=== PATIENT | female | born 1960 | race Two or more races ===

== ENCOUNTER 2024-03-10 10:22 | Outpatient (AMB) | payer OTHER, SELFPAY ==
--- NOTE | 2024-03-10 10:35 | MHC.OFFVIS ---
Intake Visit Reasons: Left knee pain Intake Note: Cheryl is a 63 year old female who presents with complaints of mild intermittent discomfort in her left knee. She describes her discomfort as achy in nature. She denies any locking or giving way. She has been using topical diclofenac gel which gives her fairly good relief. She also wears a knee brace. She continues to walk as much as possible for exercise. Allergies No Known Allergies Allergy (Verified 03/10/24 10:41) Medication List - Last Reconciled 03/10/24 by Kaleb Eastman MD glipizide 5 mg PO DAILY [facility] Social History (Updated 03/10/24 @ 10:43 by Iliana Torres) Alcohol intake: never Patient Tobacco Use Status: Never used Tobacco Current occupational status: employed Current occupation: House Keeping Physical Exam Const Other: Well-nourished well-developed very friendly female awake alert and oriented x3 in no acute distress Extrem Other: Bilateral lower extremity examination shows good capillary refill, no skin lesions noted, normal sensation light touch Left knee examination shows a minimal effusion, mild crepitus with range of motion, negative Thomas's test, no instability Results Reviewed Results Reviewed: X-rays of the patient's left knee show mild diffuse joint space narrowing, no acute bony abnormalities Assessment & Plan Assessment & Plan (1) Left knee pain: Code(s): M25.562 - Pain in left knee Category: Medical Plan Ms. Way presents with intermittent left knee discomfort due to early degenerative joint disease. I had a lengthy discussion with the patient regarding the treatment options. At this point the patient's symptoms are tolerable to her. We will hold off on a cortisone injection. I did refill her prescription for diclofenac topical gel. She will continue with her home exercise program. She will follow up with me on an as-needed basis should her symptoms worsen in any way. Feel free to call me at any time should questions regarding her orthopedic management arise. Thank you very much for asking me to see this very friendly patient. I spent 22 minutes in reviewing the patient's records and imaging studies, seeing the patient and documenting in the medical record. Orders: Orders XR knee LT 3V Today M25.562 - Pain in left knee Medications: New diclofenac sodium 1% (Aleve (diclofenac)) apply to painful area 2 times per day as needed 2 grams topical QID 100 grams 2RF Coding Level of Care Code New Pt Level 3 (09016) Complex EM visit Add On G2211 Diagnoses Left knee pain M25.562
== END 2024-03-10 10:56 | disposition home or self-care (01) ==
PROVIDERS: PCP Physician Assistant; Visit Provider Orthopaedic Surgery
DX: M25.562 Pain in left knee (principal)
CPT/HCPCS: 99203

== ENCOUNTER 2024-03-10 14:20 | Outpatient (REF) | payer OTHER, SELFPAY ==
--- NOTE | ~2024-03-10 | XR_ITS ---
EXAMINATION: XR KNEE, LEFT CLINICAL INFORMATION: Pain in left knee COMPARISON: None available. TECHNIQUE: Four views of the left knee. FINDINGS: Mild osteoarthritis of patellofemoral compartment and medial compartment. Lateral compartment normal. No effusion XR/XR knee LT 3V IMPRESSION: Mild osteoarthritis of the left knee. Electronically signed by: Italo Stafford MD 03/16/2024 11:51 AM EDT
== END 2024-03-10 14:21 | disposition home or self-care (01) ==
LOC: HO.HOSX 14:20
PROVIDERS: Visit Provider Orthopaedic Surgery
DX: M25.562 Pain in left knee (principal)
CPT/HCPCS: 73562

== ENCOUNTER 2024-08-11 10:09 | Outpatient (AMB) | payer OTHER, SELFPAY ==
--- NOTE | 2024-08-11 10:18 | MHC.OFFVIS ---
Vital Signs 08/11/24 10:23 Height 5 ft 3 in Weight 176 lb BMI 31.2 Intake Visit Reasons: Left knee pain and giving way Intake Note: Cheryl is a 64 year old female who presents with complaints of progressively worsening left knee pain and giving way. The patient describes her pain as sharp in nature. Most of the pain is along the medial aspect of her left knee. Her symptoms have gotten worse over the last year in spite of continued non operative treatments. She has failed the last 6 weeks of conservative treatment which have included a home physical therapy program, topical diclofenac gel, Tylenol and anti-inflammatory medicines. She states her left knee will give out several times per day. Allergies No Known Allergies Allergy (Verified 08/11/24 10:22) Medication List - Last Reconciled 08/11/24 by Kaleb Eastman MD diclofenac sodium 1% (Aleve (diclofenac)) 2 grams topical QID glipizide 5 mg PO DAILY PFSH Social History (Updated 03/10/24 @ 10:43 by Iliana Torres) Alcohol intake: never Patient Tobacco Use Status: Never used Tobacco Current occupational status: employed Current occupation: House Keeping Physical Exam Vital Signs: BMI result Body Mass Index 31.2 Const Other: Well-nourished well-developed very friendly female awake alert and oriented x3 in no acute distress Extrem Other: Bilateral lower extremity examination shows good capillary refill, no skin lesions noted, normal sensation light touch Left knee examination shows a minimal effusion, minimal crepitus with range of motion, tenderness along her medial joint line, positive Thomas's test, no instability Results Reviewed Results Reviewed: Standing full weight-bearing x-rays of the patient's left knee show mild diffuse joint space narrowing, no acute bony abnormalities Assessment & Plan Assessment & Plan (1) Tear of medial meniscus of left knee: Code(s): S83.242A - Other tear of medial meniscus, current injury, left knee, initial encounter Category: Medical Plan Ms. Way presents with progressively worsening left knee pain and mechanical symptoms most likely due to a medial meniscus tear. Thus, I will send the patient for an MRI of her left knee for further evaluation. I will see her back once the MRI is completed to discuss the findings and treatment options. Feel free to call me at any time should questions regarding her orthopedic management arise. I spent 20 minutes in reviewing the patient's records and imaging studies, seeing the patient and documenting in the medical record. Orders: Orders MR knee LT wo con 08/11/24 S83.242A - Other tear of medial meniscus, current injury, left knee, initial encounter Medications: Changed From diclofenac sodium 1% (Aleve (diclofenac)) apply to painful area 2 times per day as needed 2 grams topical QID 100 grams 2RF To diclofenac sodium 1% apply to painful area 2 times per day as needed 2 grams topical QID 100 grams 2RF Coding Level of Care Code Est Pt Level 3 (80882) Complex EM visit Add On G2211 Diagnoses Tear of medial meniscus of left knee S83.242A
[2024-08-11 10:23] VITALS: BMI 31.2
--- OUTSIDE RECORDS SUMMARY | 2024-08-11 12:38 | XMS_ITS | Encounter Summary ---
Author Organization [facility] Address [address] [place] [address] Care Team Providers Care Battery Checker Name Role Phone Rj Martinez PA-C Primary Care Provider + [phone] Reason for Referral * Medication Prior Authorization - Closed Specialty Diagnoses / Procedures Referred By Anahi t Referred To Contact Diagnoses Type 2 diabetes mellitus with hyperglycemia, without long-term current use of insulin ([facility]) Dawit Morrow, PharmD [address] [place] [address] Phone: tel: fax: Referral ID Status Reason Start Date Expiration Date Visits Re quested Visits Authorized [id number] Closed 1 1 Reason for Visit * Reason Comments Diabetes Mellitus 63yr old female here for DM f/u Encounter Details Date Type Department Care Team ([facility] st Contact Info) Description 07/19/2024 2:20 PM EST Office Visit [facility] [address] [place] [address] Dawit Morrow, PharmD [address] [place] [address] Type 2 diabetes mellitus with hyperglycemia, without long-term current use of insulin ([facility]) (Primary Dx); Essential hypertension Social History Tobacco Use Types Packs/Day Years Used Date Smoking Tobacco: Never Smokeless Tobacco: Never Alcohol Use Standard Drinks/Week Comments No 0 (1 standard drink = 0.6 oz pur e alcohol) Social Connections Answer Date Recorded Connectedness 1 04/26/2024 Financial Resource Strain Answer Date R ecorded Financial Resource Strain 1 2023 Stress Answer Date Recorded Stress 1 04/26/2024 Physical Activity Answer Date Recorded Physical Activity 0 01/17/2019 Food Insecurity Answer Date Recorded Food 1 04/26/2024 Transportation Needs Answer Date Record ed Transportation 1 04/26/2024 Housing Stability Answer Date Recorded Housing 1 04/26/2024 Safety and Environment Answer Date Neymar rded Safety 0 01/17/2019 Utilities Answer Date Recorded Utilities 1 04/26/2024 Employment Answer Date Recorded Stress 0 02/11/2024 Comments No Sex and Gender Information Value Date Recorded Sex Assigned at Female 05/04/2017 6:33 AM PST Legal Sex Female 1:37 PM PDT Gender Identity Female 05/04/2017 6:33 AM PST Sexual Orientation Straight 05/04/2017 6: 33 AM PST 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 Not on file Not on file Not on file documented as of this encounter Last Filed Vital Signs Vital Sign Reading Time Taken Comments Blood Pressure 150/90 07/19/2024 2:33 PM EST Pulse 98 07/19/2024 2:33 PM EST Temperature 36.3 ??C (97.4 ??F) 07/19/2024 2:33 PM ES T Respiratory Rate 18 07/19/2024 2:33 PM EST Oxygen Saturation 100% 07/19/2024 2:33 PM EST Inhaled Oxygen Concentration - - Weight 77.6 kg (171 lb) 07/19/2024 2:33 PM EST Height 162.6 cm (5' 4 ) 07/19/2024 2:33 PM EST Body Mass Index 29.35 07/19/2024 2:33 PM EST documented in this encounter Progress Notes * Dawit Camejo PharmD - 07/19/2024 2:[address] is a 63 year old, Turkish-speaking female who presents today for a follow-up visit in [facility] with Dawit Cazares PharmD. Referred by Rj Martinez PA-C. 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 Subjective: Patient reports: Continues to use Contour Next, denies experiencing any issues. Per glucometer review, BG slightly elevated Endorses adherence to medications. Polydipsia/polyphagia/polyuria? No Denies signs/symptoms of hypoglycemia. Changes in diet: reduced snacking at night, when asked if she increased vegetable intake patient stated I do not eat none of that Changes in physical activity: trying to walk more BP noted to be elevated, denies symptoms. Patient declines medication changes, states I already take too many meds New concerns: No concerns Tobacco Use: Never Smoker Alcohol Use: No alcohol use Additional OTC medications or supplements: denies Specialists managing DM/HTN: None Diabetes Current Diabetes RX: Jentadueto 2.5-1,000 mg BID glipizide ER 10 mg BID HTN Current HTN RX: Lisinopril 5 mg daily Objective: BGM Metrics: Previous 2 weeks SMBG (BGM: Contour Next) 7-day av mg/dL (n=7) 14-day av mg/dL (n=12) Highest: 218 mg/dL Lowest: 159 mg/dL Denies any hypoglycemic events Allergies reviewed: No Known Allergies BP (!) 150/90 (Right Arm, Sitting, Regular Adult) Pulse 98 Temp 97.4 ??F (36.3 ??C) Resp 18 Ht 5' 4 (1.626 m) Wt 171 lb (77.6 kg) SpO2 100% BMI 29.35 kg/m?? OB Status Postmenopausal Smoking Status Never BSA 1.87 m?? CrCl cannot be calculated (Patient's most recent lab result is older than the maximum 365 days allowed.). Last 3 BP Readings: Date: BP: 07/19/2024 150/90 04/26/2024 150/84 04/12/2024 142/80 Wt Readings from Last 3 Encounters: 07/19/24 171 lb (77.6 kg) 04/26/24 174 lb (78.9 kg) 04/12/24 173 lb 3.2 oz (78.6 kg) Lab Results Component Value Date HGBA1C 11.8 (H) 04/26/2024 HGBA1C 8.6 (H) 01/28/2024 HGBA1C 0 01/28/2024 Lab Results Component Value Date GLUCOSE 119 (A) 07/19/2024 EAG 232 05/28/2020 Lab Results Component Value Date MICRALBCREAT 9.5 05/24/2020 URALBCREAT 9 01/28/2024 Lab Results Component Value Date VITB12 1,321 (H) 10/04/2020 FOLATE 15.3 10/04/2020 Lab Results Component Value Date NA 139 05/21/2023 K 4.1 05/21/2023 BUN 12 05/21/2023 BUNCREAT SEE NOTE: 05/21/2023 CREATININE 0.73 05/21/2023 EGFR 93 05/21/2023 Lab Results Component Value Date TRIGLYC 98 05/21/2023 CHOL 228 (H) 05/21/2023 HDL 33 (L) 05/21/2023 LDL 173 (H) 05/21/2023 CHOLHDL 6.9 (H) 05/21/2023 NONHDL 195 (H) 05/21/2023 The 10-year ASCVD risk score (Polina QUINTERO, et al., 2019) is: 21.1% Assessment: Diabetes: Need updated A1c, Controlled SMBG HTN: poorly controlled ASCVD: Age 40-75 yo, DM, high ASCVD = high intensity statin recommended to reduce LDL by at least 50% (goal LDL <70 mg/dL) Plan: E11.65 Type 2 diabetes mellitus with hyperglycemia, without long-term current use of insulin ([facility]) (primary encounter diagnosis) Plan : GLUCOSE, BLOOD BY GLUCOSE MONITORING DEVICE (CLIA WAIVED)POCT COMPREHENSIVE METABOLIC PANEL LIPID PANEL HGBA1C W/MPG GLIPIZIDE ER 10 MG TABLET, EXTENDED RELEASE 24 HR - Take 1 Tablet by mouth 2 (two) times daily with a meal. Swallow tablets whole, do not chew, divide or crush. JENTADUETO 2.5 MG-1,000 MG TABLET - Take 1 Tablet by mouth 2 (two) times daily Plz provide discount if possible PHARMACOTHERAPY for diabetes Updated A1c, CMP, and lipid panel ordered. Will review results and reassess therapy. Continue current regimen for now: Jentadueto 2.5-1,000 mg BID, and glipizide ER 10 mg BID Counseled patient on the following diet and lifestyle modifications (weight loss, decrease carbohydrates such as rice, bread, pasta and corn meal, increase non-starchy vegetables, no potatoes or corn, and increase physical activity with at least 150 minutes of moderate physical activity per week). I10 Essential hypertension PHARMACOTHERAPY for HTN BP elevated, patient declines medications changes. Due to patient preference will continue current regimen: lisinopril 5 mg daily. Counseled patient on importance of diet and lifestyle (low-sodium (CRUZ) diet). ASCVD: Per 2023 ADA guidelines for lipid management, continue high-intensity statin: atorvastatin 40 mg daily Referral: None Follow-Up: 2 months Patient agrees with plan of care and verbalizes understanding. Questions were answered. Education: Labs due (A1c, Lipid panel, and CMP) - will review results and determine best therapy Medication Regimen: (indication, dosage, administration, storage, ADR, missing dose) BG testing and target Focus on consuming carbohydrates from high-fiber sources like whole grains, legumes, and fruits in controlled portions to help manage blood sugar levels, and aim to fill half your plate with non-starchy vegetables like leafy greens, broccoli, or peppers for added nutrients and fiber. Avoid sugary beverages like soda and limit sweets to special occasions, choosing healthier alternatives such as water, unsweetened tea, or low-calorie drinks to minimize blood sugar spikes Incorporate at least 150 minutes of moderate physical activity per week, such as brisk walking or cycling, to improve insulin sensitivity, enhance glucose control, and support overall cardiovascular health. Sign / Symptoms of Hyperglycemia / Hypoglycemia Hypoglycemia Treatment (Rule 15) Associate Scientist Complications Uncontrolled Diabetes Dawit Cazares PharmD documented in this encounter Miscellaneous Notes * Result Encounter Note - Dawit Camejo PharmD - 07/30/2024 2:26 PM EST CMP WNL Lipid panel improved, still slightly elevated. Continue statin therapy and lifestyle modifications. A1c improved from 11.8% to 8.9%. Per pharmacy fill history patient non-adherent, will continue current regimen. Please reiterate importance of diet and adherence to medications. Pharmacotherapy for diabetes: - Jentadueto 2.5-1,000 mg BID - glipizide ER 10 mg BID Lorna please inform patient, thanks!! * Patient Instructions - Dawit Camejo PharmD - 07/19/2024 2:55 PM EST If you are not able to keep your appointment please call 24-48 hours before your appointment to cancel or reschedule. Dawit Cazares PharmD, [facility] MT/Clinical Pharmacist ext. [phone] documented in this encounter Plan of Treatment Upcoming Encounters Date Type Department Care Team (Late st Contact Info) Description 08/25/2024 2:00 PM EDT Office Visit [address] [phone] Rj Martinez PA-C [address] [place] [address] 09/08/2024 1:00 PM EDT Office Visit [facility] [address] [place] [phone] Roxane Hawk [address] [place] [id number] 09/22/2024 2:20 PM EDT Office Visit [address] [phone] Dawit Morrow, PharmD [address] [place] [address] documented as of this encounter Procedures Procedure Name Priority Date/Time Associated Diagnosis Comments HGBA1C W/MPG Routine 07/28/2024 11:33 AM EST Type 2 diabetes mellitus with hyperglycemia, without long-term current use of insulin ([facility]) LIPID PANEL Routine 07/28/2024 11:33 AM EST Type 2 diabetes mellitus with hyperglycemia, without long-term current use of insulin ([facility]) COMPREHENSIVE METABOLIC PANEL Routine 07/28/2024 11:33 AM EST Type 2 diabetes mellitus with hyperglycemia, without long-term current use of insulin ([facility]) GLUCOSE, BLOOD BY GLUCOSE MONITORING DEVICE (CLIA WAIVED)POCT Routine 07/19/2024 2:37 PM EST Type 2 diabetes mellitus with hyperglycemia, without long-term current use of insulin ([facility]) documented in this encounter Results * (ABNORMAL) HGBA1C W/MPG (07/28/2024 11:33 AM EST) HEMOGLOBIN A1C 8.9(H) <5.7 % of total Hgb [facility] Comment: For someone without known diabetes, a hemoglobin A1c value of 6.5% or greater indicates that they may have diabetes and this should be confirmed with a follow-up test. For someone with known diabetes, a value <7% indicates that their diabetes is well controlled and a value greater than or equal to 7% indicates suboptimal control. A1c targets should be individualized based on duration of diabetes, age, comorbid conditions, and other considerations. Currently, no consensus exists regarding use of hemoglobin A1c for diagnosis of diabetes for children. ?? MEAN PLASMA GLUCOSE 240 mg/dL (calc) [facility] Blood Blood / Unknown 07/28/2024 1 1:33 AM EST 07/28/2024 11:39 AM EST Narrative [facility] - 07/29/2024 8:39 AM EST FASTING:YES Dawit Camejo PharmD LAB - BLOOD D RAW Final Result [facility] [address] [place] [id number], [facility] [address] [place] [phone] * (ABNORMAL) LIPID PANEL (07/28/2024 11:33 AM EST) CHOLESTEROL, TOTAL 197 <200 mg/dL [facility] HDL CHOLESTEROL 37(L) > OR = 50 mg/dL [facility] TRIGLYCERIDES 96 <150 mg/dL [facility] LDL-CHOLESTEROL 140(H) 99 mg/dL (calc) [facility] Comment: Reference range: <100 Desirable range <100 mg/dL for primary prevention; ?? <70 mg/dL for patients with CHD or diabetic patients with > or = 2 CHD risk factors. LDL-C is now calculated using the Ron calculation, which is a validated novel method providing better accuracy than the Friedewald equation in the estimation of LDL-C. Rodolfo SS et al. CHIQUITA. 2013;310(19): 7207-6204 (http://education.[employer]faq/ZDF076) CHOL/HDLC RATIO 5.3(H) <5.0 (calc) [facility] NON-HDL CHOLESTEROL 160(H) <130 mg/dL (calc) [facility] Comment: For patients with diabetes plus 1 major ASCVD risk factor, treating to a non-HDL-C goal of <100 mg/dL (LDL-C of <70 mg/dL) is considered a therapeutic option. Blood Blood / Unknown 07/28/2024 1 1:33 AM EST 07/28/2024 11:39 AM EST Narrative [facility] - 07/29/2024 8:39 AM EST FASTING:YES Dawit Camejo PharmD LAB - BLOOD D RAW Final Result [facility] [address] [place] [id number], [facility] [address] [place] [phone] * (ABNORMAL) COMPREHENSIVE METABOLIC PANEL (07/28/2024 11:33 AM EST) GLUCOSE 104(H) 65 - 99 mg/dL [facility] Comment: ?Fasting reference interval For someone without known diabetes, a glucose value between 100 and 125 mg/dL is consistent with prediabetes and should be confirmed with a follow-up test. UREA NITROGEN (BUN) 13 7 - 25 mg/dL [facility] CREATININE (blood) 0.71 0.50 - 1.05 mg/dL [facility] EGFR 95 > OR = 60 mL/min/1. 73m2 [facility] BUN/CREATININE RATIO SEE NOTE: [facility] Comment: ?? Not Reported: BUN and Creatinine are within ?? reference range. ? SODIUM 141 135 - 146 mmol/L [facility] POTASSIUM 4.0 3.5 - 5.3 mmol/L [facility] CHLORIDE 106 98 - 110 mmol/L [facility] CARBON DIOXIDE 29 20 - 32 mmol/L [facility] CALCIUM 9.5 8.6 - 10.4 mg/dL [facility] PROTEIN, TOTAL 7.0 6.1 - 8.1 g/dL [facility] ALBUMIN 4.2 3.6 - 5.1 g/dL [facility] GLOBULIN 2.8 1.9 - 3.7 g/dL (calc) [facility] ALBUMIN/GLOBULI N RATIO 1.5 1.0 - 2.5 (calc) [facility] BILIRUBIN, TOTAL 0.5 0.2 - 1.2 mg/dL [facility] ALKALINE PHOSPHATASE 72 37 - 153 U/L [facility] AST 17 10 - 35 U/L [facility] ALT 24 6 - 29 U/L [facility] Blood Blood / Unknown 07/28/2024 1 1:33 AM EST 07/28/2024 11:39 AM EST Narrative [facility] - 07/29/2024 8:39 AM EST FASTING:YES us Dawit Camejo PharmD LAB - BLOOD D RAW Edited Result - Final [facility] [address] [address], [facility] [address] [phone] * (ABNORMAL) GLUCOSE, BLOOD BY GLUCOSE MONITORING DEVICE (CLIA WAIVED)POCT (07/19/2024 2:37 PM EST) GLUCOSE 119(A) 70 - 100 mg/dL [facility] POCT Capillary Blood Blood / Unknown 2:37 PM EST us Dawit Camejo PharmD LAB - BLOOD D RAW Final Result [facility] POCT documented in this encounter Visit Diagnoses Diagnosis Type 2 diabetes mellitus with hyperglycemia, without long-term current use of insulin ([facility])- Primary Essential hypertension documented in this encounter Additional Health Concerns Assessment Noted Time PHQ-9 Depression Total Score: 0 04/12/20 24 11:01 AM PST documented as of this encounter Care Teams Battery Checker Relationship Specialty Start Date End Date Rj Martinez PA-C [address] [place] [address] PCP - General 09/16/21 documented as of this encounter
--- OUTSIDE RECORDS SUMMARY | 2024-08-11 12:38 | XMS_ITS | Clinical Summary ---
Author Organization [facility] ity Address [address] [place] [address] Care Team Providers Care Service Desk Team Lead Name Role Phone Rj Summers Primary Care Provider [phone] Allergies No known active allergies Medications ammonium lactate (LAC-HYDRIN) 12 % lotion Apply to soles of feet daily. At night wear socks to bed 01/14/2024 Active metFORMIN (GLUMETZA) 1,000 mg 24 hr tablet Take 1,000 mg by mouth daily (with breakfast). Active lisinopriL (PRINIVIL,ZESTRI L) 5 mg tablet Take 5 mg by mouth daily. Active hydroCHLOROthiaz isis (HYDRODIURIL) 25 mg tablet Take 25 mg by mouth daily. Active atorvastatin (LIPITOR) 20 mg tablet Take 20 mg by mouth daily. Active aspirin 81 mg chewable tablet Take 81 mg by mouth daily. Active Social History Tobacco Use Types Packs/Day Years Used Date Smoking Tobacco: Never Assessed Comments Unknown Sex and Gender Information Value Date Recorded Sex Assigned at Not on file Legal Sex Female 3:06 AM EST Gender Identity Not on file Sexual Orientation Not on file Last Filed Vital Signs Vital Sign Reading Time Taken Comments Blood Pressure 164/90 05/07/2023 9:16 AM EST Pulse 87 05/07/2023 9:16 AM EST Temperature - - Respiratory Rate - - Oxygen Saturation - - Inhaled Oxygen Concentration - - Weight 79.4 kg (175 lb) 03/24/2024 10:30 AM EDT Height - - Body Mass Index - - Plan of Treatment Upcoming Encounters Date Type Department Care Team (Late st Contact Info) Description 08/30/2024 10:45 AM EDT Office Visit Orthopedic Surgery - [place] [address] [facility] [address] [place] [phone] Anthony Pierson, DPM [facility] [address] [place] [address] Health Maintenance Due Date Last Done Comments DTaP,Tdap,and Td Vaccines (1 - Tdap) 1979 Pneumococcal Vaccine: 50+ Years (1 of 2 - PCV) 1979 Pneumococcal Vaccine: Pediatrics (0 to 5 Years) and At-Risk Patients (6 to 64 Years) (1 of 2 - PCV) 1979 Zoster Vaccines (1 of 2) 2010 Colorectal Cancer Screening: Colonoscopy 05/04/2022 Depression Screening 05/04/2022 HIV Screening 05/04/2022 Hepatitis C Screening 05/04/2022 Social Influencers of Health Screening 05/04/2022 COVID-19 Vaccine ( - season) 2024 Influenza Vaccine (#1) 2024 Breast Cancer Screening 02/23/2026 02/24/20 24, 01/02/2022, 11/04/2020, Additional history exists Cholesterol Screening (Lipid Panel) 05/21/2028 05/21/2023 RSV Immunization Patients 60+ Years Old (1 - 1-dose 75+ series) 2035 HIB Vaccines Aged Out No longer eligi ble based on patient's age to complete this topic HPV Vaccines Aged Out No longer eligi ble based on patient's age to complete this topic Hepatitis A Vaccines Aged Out No long er eligible based on patient's age to complete this topic Hepatitis B Vaccines Aged Out No long er eligible based on patient's age to complete this topic IPV Vaccines Aged Out No longer eligi ble based on patient's age to complete this topic MMR Vaccines Aged Out No longer eligi ble based on patient's age to complete this topic Meningococcal ACWY Vaccine Aged Out N o longer eligible based on patient's age to complete this topic Meningococcal B Vacine Aged Out No lo nger eligible based on patient's age to complete this topic RSV Immunization Patients Under 20 months Aged Out No longer eligible based on patient's age to complete this topic Varicella Vaccines Aged Out No longer eligible based on patient's age to complete this topic Procedures Procedure Name Priority Date/Time Associated Diagnosis Comments RAMONE SCREENING DIGITAL Routine 02/24/2024 8:03 AM EDT Encounter for screening mammogram for malignant neoplasm of breast LIPID PANEL Routine 05/21/2023 from Last 3 Months or Most Recently Relevant to Health Maintenance Results * RAMONE SCREENING DIGITAL (02/24/2024 8:03 AM EDT) Anatomical Region Laterality Modality Mammography 02/23/2024 12:3 4 PM EDT Narrative 02/24/2024 8:03 AM EDT [facility] Diagnostic Imaging Department [address] [place] [address] Patient: ??CHERYL WAY ?/Age/Sex: 1960 - 63 - F Unit#: ??[id number] ? Location/Status: ??SPDIMAM/REG CLI ? Mnemonic/Ordering Site: ??DIGSC/SPMAM Ordering Physician: ??RJ SUMMERS Ramone Screening Digital - 02/23/24 - 1304 Report Status:Signed EXAM: Ramone Screening Digital EXAM DATE AND TIME: 02/23/2024 1:05 PM HISTORY: ??Screening. COMPARISON: ??02/13/22, 01/02/22, 11/03/20, 01/13/19 TECHNIQUE: Bilateral digital breast tomosynthesis was performed in the CC and MLO projections. Computer aided detection with Fluency 3D 3.1 was employed. TISSUE DENSITY: b. There are scattered areas of fibroglandular density. FINDINGS: No suspicious masses, grouped microcalcifications, or areas of architectural distortion are seen. Vascular calcification is present. The skin is unremarkable. IMPRESSION: Stable mammographic appearance of the breasts. ??No evidence of malignancy is seen. A negative mammogram in the presence of a clinically suspicious palpable abnormality does not preclude the possibility of malignancy or alter the indications for biopsy. BI-RADS: ??Category 2: Benign RECOMMENDATION(S): 1: Routine screening mammogram BILATERAL in 1 year. M[facility] performed at [facility] [address] [place] [address] Dictating Physician: ??CLAIR MORGAN MD Electronically Signed by: ??CLAIR MORGAN MD Dic Date/Time: ??02/24/24 08 Sign date/Time: ??02/24/24 0803 Procedure Note Clair Morgan MD - 03/16/2024 [facility] Diagnostic Imaging Department [address] [place] [address] Patient: CHERYL WAYO.B./Age/Sex: 1960 - 63 - F Unit#: [id number] Location/Status: SPDIMAM/REG CLI Mnemonic/Ordering Site: [facility] Ordering Physician: RJ SUMMERS [facility] Screening Digital - 02/23/24 - 1304 Report Status:Signed EXAM: [facility] Screening Digital EXAM DATE AND TIME: 02/23/2024 1:05 PM HISTORY: Screening. COMPARISON: 02/13/22, 01/02/22, 11/03/20, 01/13/19 TECHNIQUE: Bilateral digital breast tomosynthesis was performed in the CCand MLO projections. Computer aided detection with Fluency 3D 3.1was employed. TISSUE DENSITY: b. There are scattered areas of fibroglandular density. FINDINGS: No suspicious masses, grouped microcalcifications, or areas ofarchitectural distortion are seen. Vascular calcification is present. The skin is unremarkable. IMPRESSION: Stable mammographic appearance of the breasts. No evidence of malignancyis seen. A negative mammogram in the presence of a clinically suspicious palpable abnormality does not preclude the possibility of malignancy or alter the indications for biopsy. BI-RADS: Category 2: Benign RECOMMENDATION(S): 1: Routine screening mammogram BILATERAL in 1 year. Mammogram performed at [facility] [place] [address] Dictating Physician: CLAIR MORGAN MD Electronically Signed by: CLAIR MORGAN MD Dic Date/Time: 02/24/24801 Sign date/Time: 02/24/24802 Rj MILLAN IMG BI PROCEDURES Final Result * Lipid panel (05/21/2023) LDL/HDL Ratio 0 Comment:No interpretation Triglycerides 0 mg/dL Comment:No interpretation Cholesterol 0 mg/dL Comment:No interpretation HDL 0 mg/dL Comment:No interpretation LDL Cholesterol 0 mg/dL Comment:No interpretation Blood Venous blood specimen / Unknown Historical Provider LAB BLOOD ORDERABLES Corrine l Result from Last 3 Months or Most Recently Relevant to Health Maintenance Care Teams Service Desk Team Lead Relationship Specialty Start Date End Date Rj Summers PA [address] [place] [address] [facility] - General 07/08/22
--- OUTSIDE RECORDS SUMMARY | 2024-08-11 12:38 | XMS_ITS | Clinical Summary ---
Author Organization [facility] Address [address] [place] [address] Care Team Providers Care [employer]er Name Role Phone Rj Martinez PA-C Primary Care Provider [phone] Source Comments PLEASE NOTE, if this patient is a minor, it may be UNLAWFUL to discuss sensitive information that is contained in these records (such as FAMILY PLANNING, MENTAL HEALTH or SUBSTANCE ABUSE) with the minor patient's parent or other person without the patient's specific authorization.[facility] Allergies No known active allergies Medications blood pressure monitorIndication s:Essential hypertension Check Blood pressure once daily 1 Kit 0 07/19/19 16 Active blood-glucose meter monitoring kitIndications:Ty pe 2 diabetes mellitus without complication, without long-term current use of insulin ([facility]) as needed for blood glucose monitoring 1 Each 08/13/19 18 Active aspirin [address] tabletIndications :Essential hypertension Take 1 Tablet by mouth once daily 30 Tablet 02/15/20 23 Active atorvastatin (LIPITOR) 40 mg tabletIndications :Mixed hyperlipidemia Take 1 Tablet by mouth once daily 90 Tablet 1 01/19/20 24 Active blood sugar diagnostic (CONTOUR NEXT TEST STRIPS) stripsIndications :Type 2 diabetes mellitus with hyperglycemia, without long-term current use of insulin ([facility]) Use to test BG 1x/d DXE11.9 Contour Next Test Strips 100 Each 11 01/19/20 24 Active lancets (MICROLET LANCET)Indication s:Type 2 diabetes mellitus with hyperglycemia, without long-term current use of insulin ([facility]) Use to test BG 1x/d UD DXE11.9 Microlet Lancets 100 Each 11 01/19/20 24 Active ammonium lactate (LAC-HYDRIN) 12 % lotion Authorized by: MISHA GILLESPIE 01/14/20 24 Active diclofenac sodium (VOLTAREN) 1 % gelIndications:Ac javier pain of left knee,Neck pain Apply 2 g topically 2 (two) times daily 150 g 5 04/12/20 24 Active estrogens, conjugated, (PREMARIN) 0.625 mg/gram vaginal creamIndications: Vaginal itching,Vaginal atrophy Place 1 g vaginally nightly at bedtime 1 g/day intravaginally for 2 weeks, then 500 mg to 1 g one to three times per week 30 g 1 04/13/20 24 Active lisinopriL 5 mg tabletIndications :Essential hypertension Take 1 Tablet by mouth once daily 90 Tablet 1 04/26/20 24 Active glipiZIDE (GLUCOTROL XL) 10 mg ER, 24 hour tabletIndications :Type 2 diabetes mellitus with hyperglycemia, without long-term current use of insulin ([facility]) Take 1 Tablet by mouth 2 (two) times daily with a meal. Swallow tablets whole, do not chew, divide or crush. 180 Tablet 1 07/19/19 25 Active linagliptin-metfo rmin (Zumi NetworksTADUETO) 2.5-1,000 mg tabIndications:Ty pe 2 diabetes mellitus with hyperglycemia, without long-term current use of insulin ([facility]) Take 1 Tablet by mouth 2 (two) times daily Plz provide discount if possible 180 Tablet 1 07/19/19 25 Active hydrocortisone (PROCTOCORT) 1 % rectal creamIndications: Bleeding hemorrhoids Place rectally 2 (two) times daily 28 g 3 05/08/20 22 025 Disconti nued(Out dated-Re moved from [employer] (Cuiker-Cance l Not Sent)) simethicone (MYLICON) 80 mg chewable tabletIndications :Abdominal bloating Place 1 Tablet into mouth, chew and swallow every 6 (six) hours as needed for flatulence 90 Tablet 1 03/12/20 23 025 Disconti nued(Out dated-Re moved from [employer] (E-Cance l Not Sent)) linagliptin-metfo rmin (JENTADUETO) 2.5-1,000 mg tabIndications:Ty pe 2 diabetes mellitus with hyperglycemia, without long-term current use of insulin ([facility]) Take 1 Tablet by mouth 2 (two) times daily Plz provide discount if possible 180 Tablet 1 01/19/20 24 025 Disconti nued(Reo rder (E-Cance l Not Sent)) glipiZIDE (GLUCOTROL XL) 10 mg ER, 24 hour tabletIndications :Type 2 diabetes mellitus with hyperglycemia, without long-term current use of insulin ([facility]) Take 1 Tablet by mouth 2 (two) times daily with a meal. Swallow tablets whole, do not chew, divide or crush. 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 Uterine prolapse 06/03/2016 Overview (12/07/2016): Following at [facility]. Underwent robotic total hysterectomy w/ BSO And cystoscopy on 10/08/16. Routine gynecological examination 10/16/2015 Overview (10/16/2015): [facility] cytopathology report. 10/09/15. Thin prep: negative for squamous intraepithelial lesion and malignancy. Negative HPV Hyperlipidemia 04/09/2015 Essential hypertension 04/05/2015 Type 2 diabetes mellitus without complication ([facility]) 04/05/2015 Resolved Problems Problem Noted Date Diagnosed Date Resolved Date Overweight (BMI 25.0-29.9) 04/05/2015 1 07/02/2016 Encounters Date Type Department Care Team Description 07/19/2024 2:20 PM EST Office Visit [address] [phone] Dawit Morrow, PharmD Type 2 diabetes mellitus with hyperglycemia, without long-term current use of insulin ([facility]) (Primary Dx); Essential hypertension from Last 3 Months Immunizations Name Administration Dates Next Due Flu, Preservative Free 03/22/2019,02/11/2017 Hep B, Adult/Adol (ENERGIX/RECOMBIVAX) 2,05/24/2020,2019 INFLUENZA, SEASONAL, INJECTABLE 06/03/2016 PNEUMOCOCCAL POLYSACCHARIDE PPV23 07/19/2015 TDAP 10/23/2015 ZOSTER VACCINE, RECOMBINANT (SHINGRIX) 2,01/02/2022 Family History Medical History Relation Name Comments No Known Problems Brother 1 No Known Problems Brother 2 No Known Problems Father No Known Problems Maternal Grandfather No Known Problems Maternal Grandmother Diabetes Mother No Known Problems Paternal Grandfather No Known Problems Paternal Grandmother No Known Problems Sister No Known Problems Son 1 Relation Name Status Comments Brother 1 Alive Brother 2 Alive Father Alive Maternal Grandfather Maternal Grandmother Mother Paternal Grandfather Paternal Grandmother Sister Alive Son 1 Alive Son 2 Alive Social History Tobacco Use Types Packs/Day Years Used Date Smoking Tobacco: Never Smokeless Tobacco: Never Tobacco Cessation:Counseling Given: Not Answered Alcohol Use Standard Drinks/Week Comments No 0 [...] 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 Not on file Not on file Not on file Last Filed Vital Signs [...] Mass Index 29.35 07/19/2024 2:33 PM EST Plan of Treatment Upcoming Encounters Date Type Department Care Team (Late st Contact Info) Description 08/25/2024 2:00 PM EDT Office Visit [address] [phone] Rj Martinez PA-C [address] [place] [address] 09/08/2024 1:00 PM EDT Office Visit [facility] [address] [place] [phone] Roxane Hawk [address] [place] [address] 09/22/2024 2:20 PM EDT Office Visit [address] [phone] Dawit Morrow, PharmD [address] [place] [address] Health Maintenance Due Date Last Done Comments HPV Screening [address] CT Colonography 2005 Fecal DNA 2005 Flexible Sigmoidoscopy 2005 Imm-Pneumococcal (2 of 2 - PCV) 07/19/2016 6 Pap Smear 10/02/2018 10/03/2015, 10/03/2015 Pap + HPV 10/02/2020 10/03/2015 FIT/gFOBT 05/24/2021 05/24/2020 Dental Prophy 08/15/2023 02/12/2023, 03/0 07/2022, 01/16/2022 Cls-AVBAY-92 ( season) 2024 02/27/2021, 06/24/2020, 06/03/2020 Dental BW 02/15/2024 02/12/2023, 03/0 07/2022, 01/16/2022 Dental Examination 02/15/2024 02/12/2023, 07/31/2022 Dental Perio Charting 02/15/2024 02/12/2023, 022 Alcohol and Drug Screen 06/01/2024 04/12/20, 10/13/2023, 10/13/2023, Additional history exists Depression Annual Screen 06/01/2024 04/12/2024, 09/29 Diabetes HbA1c 10/25/2024 07/28/2024, 04/02, 01/28/2024, Additional history exists Annual Preventive Care Visit 01/27/2025, 09/26/2021, 05/24/2020, Additional history exists Diabetes Foot Exam 01/27/2025 01/28/2024, 0 10/09/2022, 09/26/2021, Additional history exists Diabetes Microalbumin (w/Creatinine) 01/27/2025 01/28/2024, 05/22/2021, 05/24/2020, Additional history exists Retinopathy Screening 07/14/2025 07/14/2024 , 07/06/2023, 07/03/2022 (Managed by Outside Provider), Additional history exists Tobacco Screening 07/19/2025 07/19/2024 Lipid Screening 07/28/2025 07/28/2024, 05/02, 05/21/2023, Additional history exists Serum Creatinine 07/28/2025 07/28/2024, , 09/30/2021, Additional history exists Imm-DTaP/Tdap/Td (2 - Td or Tdap) 10/22/2025 016 Colonoscopy 02/14/2026 02/15/2016 Colorectal Cancer Screening 02/14/2026 Breast Cancer Screening (Mammogram) 02/23/2026 02/24/2024, 02/23/2024, 02/13/2022, Additional history exists Dental FMX/Pano 09/14/2027 09/11/2022, 01/16/2022 HIV Screening Completed 03/08/2019 Hepatitis C Screening Completed 03/08/2019 Imm-Influenza Discontinued 03/07/2022, 03/02, 02/11/2017, Additional history exists Imm-Hepatitis B Completed 05/08/2022, 05/02, 2019 Imm-Zoster, Recombinant Completed 05/08/2022, 01/02 Cervical Ablation/Cold-Knife Conization Discontinued Cervical Cancer Screening Discontinued Cervical Cryotherapy Discontinued Colposcopy Discontinued Endometrial Biopsy Discontinued Excision/Leep Discontinued HPV Genotyping Discontinued Vaginal Pap Discontinued Vulvoscopy Discontinued Procedures Procedure Name Priority Date/Time Associated Diagnosis Comments HGBA1C W/MPG Routine 07/28/2024 11:33 AM EST Type 2 diabetes mellitus with hyperglycemia, without long-term current use of insulin ([facility]) LIPID PANEL Routine 07/28/2024 11:33 AM EST Type 2 diabetes mellitus with hyperglycemia, without long-term current use of insulin ([facility]) COMPREHENSIVE METABOLIC PANEL Routine 07/28/2024 11:33 AM EST Type 2 diabetes mellitus with hyperglycemia, without long-term current use of insulin ([facility]) GLUCOSE, BLOOD BY GLUCOSE MONITORING DEVICE (CLIA WAIVED)POCT Routine 07/19/2024 2:37 PM EST Type 2 diabetes mellitus with hyperglycemia, without long-term current use of insulin ([facility]) EYE EXAM 07/14/2024 3:00 AM EST HISTORIC MAMMOGRAM 02/24/2024 3: 00 AM EDT MICROALBUMIN/CREATINI NE RATIO, URINE, RANDOM Routine 01/28/2024 1:36 PM EDT BITEWINGS - FOUR RADIOGRAPHIC IMAGES Routine 02/12/2023 1:00 PM EDT [facility] PROPHYLAXIS - ADULT Routine 02/12/2023 1 :00 PM EDT [facility] PERIODIC ORAL EVALUATION ESTABLISHED PATIENT Routine 02/12/2023 1:00 PM EDT [facility] REFERRAL TO PODIATRY Routine 10/09/2022 3:00 AM EDT Type 2 diabetes mellitus with hyperglycemia, without long-term current use of insulin ([facility]) 32 PANORAMIC RADIOGRAPHIC IMAGE Routine 09/11/2022 2:00 PM EDT Caries of pulp COMP PERIODONTAL EVALUATION - NEW/EST PATIENT Routine 01/16/2022 1:40 PM EDT [facility] OCCULT BLOOD, STOOL (X1) Routine 05/24/2020 10:58 AM EST Colon cancer screening ANTIBODY HIV-1&HIV-2 SINGLE RESULT Routine 03/08/2019 9:13 AM EDT Encounter for routine child health examination without abnormal findings HEPATITIS A,B,C PANEL Routine 03/08/2019 9:13 AM EDT Encounter for routine child health examination without abnormal findings Screening for viral disease PAP, LIQUID BASED Routine 10/03/2015 10: 20 AM EDT Routine gynecological examination from Last 3 Months or Most Recently Relevant to Health Maintenance Results * (ABNORMAL) HGBA1C W/MPG (07/28/2024 11:33 AM EST) HEMOGLOBIN A1C 8.9(H) <5.7 % of total Hgb [employer] Comment: For someone without known diabetes, a [...] ?? MEAN PLASMA GLUCOSE 240 mg/dL (calc) [employer] Blood Blood / Unknown 07/28/2024 1 1:33 AM EST 07/28/2024 11:39 AM EST Narrative [facility] - 07/29/2024 8:39 AM EST FASTING:YES us Dawit Camejo PharmD LAB - BLOOD D RAW Final Result [facility] [address] [address], [facility] [address] [address] * (ABNORMAL) LIPID PANEL (07/28/2024 11:33 AM EST) CHOLESTEROL, TOTAL 197 <200 mg/dL [facility] HDL CHOLESTEROL 37(L) > OR = 50 mg/dL [facility] TRIGLYCERIDES 96 <150 mg/dL [facility] LDL-CHOLESTEROL 140(H) 99 mg/dL (calc) [facility] Comment: Reference range: <100 Desirable range <100 mg/dL for primary prevention; ?? <70 mg/dL for patients with CHD or diabetic patients with > or = 2 CHD risk factors. LDL-C is now calculated using the Rodolfo-Antwan calculation, which is a validated novel method providing better accuracy than the Friedewald equation in the estimation of LDL-C. Rodolfo SS et al. CHIQUITA. 2013;310(19): 5172-5458 (http://education.Mashups/faq/WRE332) CHOL/HDLC RATIO 5.3(H) <5.0 (calc) [facility] NON-HDL CHOLESTEROL 160(H) <130 mg/dL (calc) [facility] Comment: For patients with diabetes plus 1 major ASCVD risk factor, treating to a non-HDL-C goal of <100 mg/dL (LDL-C of <70 mg/dL) is considered a therapeutic option. Blood Blood / Unknown 07/28/2024 1 1:33 AM EST 07/28/2024 11:39 AM EST Narrative [facility] - 07/29/2024 8:39 AM EST FASTING:YES us Dawit Camejo PharmD LAB - BLOOD D RAW Final Result [facility] [address] [address], [facility] [address] [place] [address] * (ABNORMAL) COMPREHENSIVE METABOLIC PANEL (07/28/2024 11:33 AM EST) GLUCOSE 104(H) 65 - 99 mg/dL [facility] Comment: ?Fasting reference interval For someone without known diabetes, a glucose value between 100 and 125 mg/dL is consistent with prediabetes and should be confirmed with a follow-up test. UREA NITROGEN (BUN) 13 7 - 25 mg/dL [facility] CREATININE (blood) 0.71 0.50 - 1.05 mg/dL [facility] EGFR 95 > OR = 60 mL/min/1. 73m2 [facility] BUN/CREATININE RATIO SEE NOTE: [facility] Comment: ?? Not Reported: BUN and Creatinine are within ?? reference range. ? SODIUM 141 135 - 146 mmol/L [facility] POTASSIUM 4.0 3.5 - 5.3 mmol/L [facility] CHLORIDE 106 98 - 110 mmol/L [facility] CARBON DIOXIDE 29 20 - 32 mmol/L [facility] CALCIUM 9.5 8.6 - 10.4 mg/dL [facility] PROTEIN, TOTAL 7.0 6.1 - 8.1 g/dL [facility] ALBUMIN 4.2 3.6 - 5.1 g/dL [facility] GLOBULIN 2.8 1.9 - 3.7 g/dL (calc) [facility] ALBUMIN/GLOBULI N RATIO 1.5 1.0 - 2.5 (calc) [facility] BILIRUBIN, TOTAL 0.5 0.2 - 1.2 mg/dL [facility] ALKALINE PHOSPHATASE 72 37 - 153 U/L [facility] AST 17 10 - 35 U/L [facility] ALT 24 6 - 29 U/L [facility] Blood Blood / Unknown 07/28/2024 1 1:33 AM EST 07/28/2024 11:39 AM EST Narrative [facility] - 07/29/2024 8:39 AM EST FASTING:YES Dawitpierce Camejo PharmD LAB - BLOOD D RAW Edited Result - Final [facility] [address] [address], [facility] [address] [address] * (ABNORMAL) GLUCOSE, BLOOD BY GLUCOSE MONITORING DEVICE (CLIA WAIVED)POCT (07/19/2024 2:37 PM EST) GLUCOSE 119(A) 70 - 100 mg/dL [facility]- BACK OFFICE POCT Capillary Blood Blood / Unknown 2:37 PM EST Dawit Camejo PharmD LAB - BLOOD D RAW Final Result [facility]- BACK OFFICE POCT * EYE EXAM (07/14/2024 3:00 AM EST) 07/14/2024 3:00 AM EST Rj Martinez PA-C OTHER Edited Resul t - Final * HISTORIC MAMMOGRAM (02/24/2024 3:00 AM EDT) 02/24/2024 3:00 AM EDT us Rj Martinez PA-C IMG MAMMO Edited Resul t - Final * MICROALBUMIN/CREATININE RATIO, URINE, RANDOM (01/28/2024 1:36 PM EDT) CREATININE, RANDOM URINE 193 20 - 275 mg/dL [facility] MICROALBUMIN 1.7 mg/dL [facility] Comment: Reference Range Not established MICROALBUMIN/CREA TININE RATIO, RANDOM URINE 9 <30 mg/g creat [facility] Comment: The ADA defines abnormalities in albumin excretion as follows: Albuminuria Category ?Result (mg/g creatinine) Normal to Mildly increased ?? <30 Moderately increased ? 30-299 Severely increased ? > OR = 300 The ADA recommends that at least two of three specimens collected within a 3-6 month period be abnormal before considering a patient to be within a diagnostic category. 01/28/2024 1:36 PM EDT 01/28/2024 1:39 PM EDT Narrative [facility] [employer] - 01/30/2024 8:08 PM EDT FASTING:NO Dawit Camejo PharmD LAB - NO BLOO D DRAW Final Result [facility] [address] [place] [id number], [facility] [address] [address] * REFERRAL TO PODIATRY (10/09/2022 3:00 AM EDT) 10/09/2022 3:00 AM EDT Sil Posey PharmD REFERRAL Edited Resu lt - Final * OCCULT BLOOD, STOOL (X1) (05/24/2020 10:58 AM EST) STOOL OCCULT, SCREENING (ICT) RESULT SPEC 1 NEGATIVE CARD ELA DATE: 05/29/2020 RESULT SPEC 2 NEGATIVE CARD ELA DATE: 05/31/20 RESULT SPEC 3 NEGATIVE CARD ELA DATE: 06/06/2020 [facility] Stool Stool specimen / Unknown 05/24/2020 10:58 AM EST 06/07/2020 6:43 PM EST Narrative [facility] - 06/11/2020 12:08 PM EST [employer], [place] [address] [employer]opedic [employer]oe Maker - Josie Wise MD PT ID [id number] ORD# [id number] SOURCE: STOOL; [facility] - NO BLOOD DRAW Final Result Performing Organization Address [facility]/ZIP Co de Phone Number [address] [address], * (ABNORMAL) HEPATITIS A,B,C PANEL (03/08/2019 9:13 AM EDT) HEPATITIS B SURFACE ANTIBODY NEGATIVE NEGATIVE [facility] HEPATITIS B SURFACE ANTIGEN NEGATIVE NEGATIVE [facility] Comment: Over the counter supplements containing high doses of biotin may interfere with this assay. ??If interference is suspected, patients shoud be retested after refraining from biotin supplements for 72 hours. HEPATITIS C VIRUS DIAGNOSTIC NEGATIVE NEGATIVE [facility] HEPATITIS A ANTIBODY TOTAL POSITIVE(A) NEGATIVE [facility] Comment: Over the counter supplements containing high doses of biotin may interfere with this assay. ??If interference is suspected, patients shoud be retested after refraining from biotin supplements for 72 hours. HEPATITIS B CORE ANTIBODY NEGATIVE NEGATIVE [facility] Blood specimen (specimen) Blood / Unknown 03/08/2019 9:13 AM EDT 03/08/2019 9:20 AM EDT Narrative [facility] - 03/08/2019 12:20 PM EDT [facility] [place], a member of [address] [address] Orthopedic Shoe Maker - Josie Wise MD PT ID [id number] ORD# [id number] [facility] - BLOOD DRAW Edited Result - Final [address] [address], * HIV-1 & HIV-2 ANTIBODIES (03/08/2019 9:13 AM EDT) HIV 1 AND 2 ANTIBODY SCREEN NEGATIVE NEGATIVE [facility] Comment: This assay is a 4th generation assay allowing for earlier detection of HIV infection by detecting the presence of the HIV-1 p24 antigen as well as the traditional antibodies to HIV type 1 (including group O) and type 2. ??Use of a 4th generation assay is the current CDC recommendation for HIV screening. Blood specimen (specimen) Blood / Unknown 03/08/2019 9:13 AM EDT 03/08/2019 9:20 AM EDT Narrative [facility] - 03/08/2019 12:49 PM EDT [employer], a member of [address] [address] Orthopedic Shoe Maker - Josie Wise MD [place] ID [id number] ORD# [id number] Yessenia Chaidez [facility] - BLOOD DRAW Final Result [address] [address], [place] [phone] * PAP, LIQUID BASED (10/03/2015 10:20 AM EDT) Protected specimen brush (physical object) Cervix uteri structure / Unknown 10/03/2015 10:20 AM EDT [facility] - 10/03/2015 10:20 AM EDT ThinPrep Pap, Imaged: Negative for Squamous Intraepithelial Lesion and Malignancy HPV Negative Susi Alex [facility] - NO BLOOD DRAW Final Re sult Performing Organization Address [facility]/State/ZIP Co de Phone Number [facility] [address] [place] [id number], [place] [phone] from Last 3 Months or Most Recently Relevant to Health Maintenance Insurance [facility]) Member Subscriber Plan / Payer (Ef fective 2022-Present) Name:Cheryl Way Relation to Subscriber:Self Name:Cheryl Way Payer ID:[id number] Type:[employer] Address: [address] [place] [id number] [place] [address]) Member Subscriber Plan / Payer (Ef fective 2022-Present) Name:Niecy Wayta Relation to Subscriber:Self Name:Cheryl Way Payer ID:[id number] Type:[employer] Address: [address] [place] [id number] Care Teams [employer] Relationship Specialty Start Date End Date Rj Martinez PA-C [address] [place] [address] PCP - General 09/16/21
== END 2024-08-11 10:48 | disposition home or self-care (01) ==
LOC: HO.HOS 10:10
PROVIDERS: PCP Physician Assistant; Visit Provider Orthopaedic Surgery
DX: S83.242A Other tear of medial meniscus, current injury, left knee, initial encounter (principal)
CPT/HCPCS: 99213

== ENCOUNTER → 2024-08-30 10:34 | Outpatient (BNV) | payer OTHER, SELFPAY | PROVIDERS: Visit Provider Radiology Diagnostic Radiology | DX: M25.462 Effusion, left knee (principal); M71.22 Synovial cyst of popliteal space [Baker], left knee; M17.12 Unilateral primary osteoarthritis, left knee; M23.322 Other meniscus derangements, posterior horn of medial meniscus, left knee | CPT/HCPCS: 73721 ==

== ENCOUNTER 2024-08-30 10:43 | Outpatient (REF) | payer OTHER, SELFPAY ==
--- NOTE | ~2024-08-30 | MR_ITS ---
EXAMINATION: MRI LEFT KNEE WITHOUT CONTRAST HISTORY: S83.242A - Other tear of medial meniscus, current injury, left knee COMPARISON: Correlation is made to plain films of the left knee dated 03/10/2024. TECHNIQUE: Coronal T1 and fat-suppressed proton density, sagittal proton density and fat-suppressed proton density, and axial fat suppressed T2 weighted MR images of the left knee were obtained. FINDINGS: Bone marrow: There is subchondral marrow edema involving the medial tibial plateau related to arthritis. Joint effusion: There is a small to moderate joint effusion. Hayden's cyst: There is a moderate-sized Hayden's cyst. Articular cartilage: There is moderate osteoarthritis of the medial compartment with cartilage loss, osteophyte formation, and subchondral marrow changes. There is moderate to severe osteoarthritis of the patellofemoral compartment. Muscles/soft tissues: The visualized muscles demonstrate normal signal intensity. Anterior cruciate ligament: Intact Posterior cruciate ligament: Intact Medial collateral ligament: Intact Lateral collateral ligament: Intact Medial meniscus: There is partial extrusion of the meniscus. There is diffuse increased signal intensity within the body and posterior horn of the medial meniscus. There are linear foci of increased T2 signal intensity within the body and posterior horn which contacts the superior and inferior joint surfaces, consistent with tears. These are likely degenerative in nature. There is attenuation of the meniscal root which may indicate an additional tear. Lateral meniscus: Intact Flexor mechanism: The popliteus, gastrocnemius, and hamstring tendons are intact. Quadriceps tendon: Intact Patellar tendon: Intact Patellar retinacula: Intact MR/MR knee LT wo con IMPRESSION: 1. Small to moderate joint effusion. Moderate-sized Hayden's cyst. 2. Moderate osteoarthritis of the medial compartment. Moderate to severe osteoarthritis of the patellofemoral compartment. 3. Complex tears of the body and posterior horn of the medial meniscus with involvement of the meniscal root. Findings are likely degenerative in nature. Electronically signed by: Kwabena Chapa MD 08/30/2024 12:21 PM EDT
--- OUTSIDE RECORDS SUMMARY | 2024-08-30 12:51 | XMS_ITS | Clinical Summary ---
Author Organization [facility] Address [address] [place] [address] Care Team Providers Care Cake Batter Mixer Name Role Phone Rj Martinez PA-C Primary Care Provider [phone] Source Comments PLEASE NOTE, if this patient [...] complication, without long-term current use of insulin ([facility]) as needed for blood glucose monitoring 1 [...] hyperglycemia, without long-term current use of insulin ([facility]) Use to test BG 1x/d DXE11.9 Contour Next Test Strips 100 Each 11 01/19/20 24 Active lancets (MICROLET LANCET)Indication s:Type 2 diabetes mellitus with hyperglycemia, without long-term current use of insulin ([facility]) Use to test BG 1x/d UD DXE11.9 Microlet Lancets 100 Each 11 01/19/20 24 Active ammonium lactate (LAC-HYDRIN) 12 % lotion Authorized by: MISHA GILLESPIE 01/14/20 24 Active diclofenac sodium (VOLTAREN) 1 % gelIndications:Ac prairie band pain of left knee,Neck pain Apply 2 g topically 2 (two) times daily 150 g 5 04/12/20 24 Active estrogens, conjugated, (PREMARIN) 0.625 mg/gram vaginal creamIndications: Vaginal itching,Vaginal atrophy Place 1 g vaginally nightly at bedtime 1 g/day intravaginally for 2 weeks, then 500 mg to 1 g one to three times per week 30 g 1 04/13/20 24 Active glipiZIDE (GLUCOTROL XL) 10 mg ER, 24 hour tabletIndications :Type 2 diabetes mellitus with hyperglycemia, without long-term current use of insulin ([facility]) Take 1 Tablet by mouth 2 (two) times daily with a meal. Swallow tablets whole, do not chew, divide or crush. 180 Tablet 1 07/19/19 25 Active linagliptin-metfo rmin (JENTADUETO) 2.5-1,000 mg tabIndications:Ty pe 2 diabetes mellitus with hyperglycemia, without long-term current use of insulin ([facility]) Take 1 Tablet by mouth 2 (two) times daily Plz provide discount if possible 180 Tablet 1 07/19/19 25 Active lisinopriL 10 mg tabletIndications :Essential hypertension Take 1 Tablet by mouth once daily 90 Tablet 1 08/26/19 25 Active lisinopriL 5 mg tabletIndications :Essential hypertension Take 1 Tablet by mouth once daily 90 Tablet 1 04/26/20 24 025 Disconti nued(The rapy complete d/Not needed) Active Problems Problem Noted Date Diagnosed Date Acute meniscal tear of left knee 08/15/2024 Primary osteoarthritis of left knee 02/09/2024 Class [...] Uterine prolapse 06/03/2016 Overview (12/07/2016): Following at [facility]. Underwent robotic total hysterectomy w/ BSO And cystoscopy on 10/08/16. Routine gynecological examination 10/16/2015 Overview (10/16/2015): Noel cytopathology report. 10/09/15. Thin prep: negative for squamous intraepithelial lesion and malignancy. Negative HPV Hyperlipidemia 04/09/2015 Essential hypertension 04/05/2015 Type 2 diabetes mellitus without complication ( [facility]-CMS) 04/05/2015 Resolved Problems Problem Noted Date Diagnosed Date Resolved Date Overweight (BMI 25.0-29.9) 04/05/2015 1 07/02/2016 Encounters Date Type Department Care Team Description 08/25/2024 2:00 PM EDT Office Visit [address] [address] Rj Martinez PA-C Essential hypertension (Primary Dx); Hair loss 07/19/2024 2:20 PM EST Office Visit [address] [address] Dawit Morrow, PharmD Type 2 diabetes mellitus with hyperglycemia, without long-term current use of insulin ([facility]) (Primary Dx); Essential hypertension from Last 3 Months Immunizations Immunization Administration Dates Next Due Flu, Preservative Free [...] 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 Not on file Not on file Last Filed Vital Signs Vital Sign Reading Time Taken Comments Blood Pressure 146/72 08/25/2024 2:00 PM EDT Pulse 93 08/25/2024 2:00 PM EDT Temperature 37.2 ??C (98.9 ??F) 08/25/2024 2:00 PM ED T Respiratory Rate 16 08/25/2024 2:00 PM EDT Oxygen Saturation 98% 08/25/2024 2:00 PM EDT Inhaled Oxygen Concentration - - Weight 79.4 kg (175 lb) 08/25/2024 2:00 PM EDT Height 162.6 cm (5' 4 ) 08/25/2024 2:00 PM EDT Body Mass Index 30.04 08/25/2024 2:00 PM EDT Plan of Treatment Upcoming Encounters Date Type Department Care Team (Late st Contact Info) Description 09/08/2024 1:00 PM EDT Office Visit [facility] [address] [place] [address] Roxane Hawk [address] [place] [address] 09/22/2024 2:20 PM EDT Office Visit [facility] [address] [place] [address] Dawit Morrow, PharmD [address] [place] [address] Health Maintenance Due Date Last Done Comments Anxiety Screening [address] Colonography 2005 Fecal DNA 2005 Flexible Sigmoidoscopy 2005 Imm-Pneumococcal (2 of 2 - PCV) 07/19/2016 6 Pap Smear 10/02/2018 10/03/2015, 10/03/2015 Pap + HPV 10/02/2020 10/03/2015 FIT/gFOBT 05/24/2021 05/24/2020 Dental Prophy 08/15/2023 02/12/2023, 03/0 07/2022, 01/16/2022 [id number] ( season) 2024 02/27/2021, 06/24/2020, 06/03/2020 Dental BW 02/15/2024 02/12/2023, 03/0 07/2022, 01/16/2022 Dental Examination 02/15/2024 02/12/2023, 07/31/2022 Dental Perio Charting 02/15/2024 02/12/2023, 022 Alcohol and Drug Screen 06/01/2024 04/12/20 24, 10/13/2023, 10/13/2023, Additional history exists Depression Annual Screen 06/01/2024 04/12/2024, 09/29 Diabetes HbA1c 10/25/2024 07/28/2024, 04/02, 01/28/2024, Additional history exists Annual Preventive Care Visit 01/27/2025, 09/26/2021, 05/24/2020, Additional history exists Diabetes Foot Exam 01/27/2025 01/28/2024, 0 10/09/2022, 09/26/2021, Additional history exists Urine Albumin Creatinine Rat io Screening 01/27/2025 01/28/2024, 05/22/2021, 05/24/2020, Additional history exists Retinopathy Screening 07/14/2025 07/14/2024 , 07/06/2023, 07/03/2022 (Managed by Outside Provider), Additional history exists Lipid Screening 07/28/2025 07/28/2024, 05/02, 05/21/2023, Additional history exists Serum Creatinine 07/28/2025 07/28/2024, , 09/30/2021, Additional history exists Tobacco Screening 08/25/2025 08/25/2024 Imm-DTaP/Tdap/Td (2 - Td or Tdap) 10/22/2025 [...] Procedure Name Priority Date/Time Associated Diagnosis Comments IRON, TIBC, FERRITIN PANEL Routine 08/25/2024 2:19 PM EDT Hair loss BLOOD COUNT COMPLETE AUTO&AUTO DIFRNTL WBC Routine 08/25/2024 2:19 PM EDT Hair loss REFERRAL TO ORTHOPEDICS Routine 08/11/2024 3:00 AM EDT Primary osteoarthritis of left knee HGBA1C W/MPG Routine 07/28/2024 11:33 AM EST Type 2 diabetes mellitus with hyperglycemia, without long-term current use of insulin ([facility]) LIPID PANEL Routine 07/28/2024 11:33 AM EST Type 2 diabetes mellitus with hyperglycemia, without long-term current use of insulin ([facility]) COMPREHENSIVE METABOLIC PANEL Routine 07/28/2024 11:33 AM EST Type 2 diabetes mellitus with hyperglycemia, without long-term current use of insulin ([facility]) GLUCOSE, BLOOD BY GLUCOSE MONITORING DEVICE (CLIA WAIVED)POCT Routine 07/19/2024 2:37 PM EST Type 2 diabetes mellitus with hyperglycemia, without long-term current use of insulin ([facility]) EYE EXAM 07/14/2024 3:00 AM EST HISTORIC [...] hyperglycemia, without long-term current use of insulin ([facility]) 32 PANORAMIC RADIOGRAPHIC IMAGE Routine 09/11/2022 2:00 [...] Recently Relevant to Health Maintenance Results * IRON, TIBC, FERRITIN PANEL (08/25/2024 2:19 PM EDT) Pathologist [facility] FERRITIN 140 16 - 288 ng/mL [facility] IRON, TOTAL 59 45 - 160 mcg/dL [facility] IRON BINDING CAPACITY 344 250 - 450 mcg/dL (calc) [facility] % SATURATION 17 16 - 45 % (calc) [facility] Blood Blood / Unknown 08/25/2024 2 :19 PM EDT 08/25/2024 2:21 PM EDT Rj Martinez PA-C LAB - BLOOD DRAW Final Resul t [facility] [address] [place] [id number], [facility] [address] [place] [phone] * (ABNORMAL) BLOOD COUNT COMPLETE AUTO&AUTO DIFRNTL WBC (08/25/2024 2:19 PM EDT) Pathologist [facility] WHITE BLOOD CELL COUNT 11.0(H) 3.8 - 10.8 Thousand/ uL [facility] RED BLOOD CELL COUNT 4.07 3.80 - 5.10 Million/u L [facility] HEMOGLOBIN 12.0 11.7 - 15.5 g/dL [facility] HEMATOCRIT 36.3 35.0 - 45.0 % [facility] MCV 89.2 80.0 - 100.0 fL [facility] MCH 29.5 27.0 - 33.0 pg [facility] MCHC 33.1 32.0 - 36.0 g/dL [facility] Comment: For adults, a slight decrease in the calculated MCHC value (in the range of 30 to 32 g/dL) is most likely not clinically significant; however, it should be interpreted with caution in correlation with other red cell parameters and the patient's clinical condition. RDW 12.9 11.0 - 15.0 % [facility] PLATELET COUNT 305 140 - 400 Thousand/ uL [facility] MPV 10.0 7.5 - 12.5 fL [facility] ABSOLUTE NEUTROPHILS 5,533 1,500 - 7,800 cells/uL [facility] ABSOLUTE LYMPHOCYTES 4,543(H) 850 - 3,900 cells/uL [facility] ABSOLUTE MONOCYTES 649 200 - 950 cells/uL [facility] ABSOLUTE EOSINOPHILS 242 15 - 500 cells/uL [facility] ABSOLUTE BASOPHILS 33 0 - 200 cells/uL [facility] NEUTROPHILS PCT 50.3 % [facility] [place] LYMPHOCYTES 41.3 % [facility] MONOCYTES 5.9 % [facility] EOSINOPHILS 2.2 % [facility] BASOPHILS 0.3 % [facility] Blood Blood / Unknown 08/25/2024 2 :19 PM EDT 08/25/2024 2:21 PM EDT us Rj Martinez PA-C LAB - BLOOD DRAW Edited Resu lt - Final [facility] [address] [place] [id number], [facility] [address] [place] [phone] * REFERRAL TO ORTHOPEDICS (08/11/2024 3:00 AM EDT) 08/11/2024 3:00 AM EDT us Rj Martinez PA-C REFERRAL Final Result * (ABNORMAL) HGBA1C W/MPG (07/28/2024 11:33 AM EST) HEMOGLOBIN A1C 8.9(H) <5.7 % of total Hgb [facility] Comment: For someone without known diabetes, a [...] ?? MEAN PLASMA GLUCOSE 240 mg/dL (calc) [facility] Blood Blood / Unknown 07/28/2024 1 1:33 AM EST 07/28/2024 11:39 AM EST Narrative [facility] - 07/29/2024 8:39 AM EST FASTING:YES Dawit Camejo PharmD LAB - BLOOD D RAW Final Result [facility] [address] [place] [id number], [facility] [address] [place] [phone] * (ABNORMAL) LIPID PANEL (07/28/2024 11:33 AM EST) [facility] CHOLESTEROL, TOTAL 197 <200 mg/dL [facility] HDL CHOLESTEROL 37(L) > OR = 50 mg/dL [facility] TRIGLYCERIDES 96 <150 mg/dL [facility] LDL-CHOLESTEROL 140(H) 99 mg/dL (calc) [facility] Comment: Reference range: <100 Desirable range <100 mg/dL for primary prevention; ?? <70 mg/dL for patients with CHD or diabetic patients with > or = 2 CHD risk factors. LDL-C is now calculated using the Rodolfo-Antwan calculation, which is a validated novel method providing better accuracy than the Friedewald equation in the estimation of LDL-C. Rodolfo BONILLA et al. CHIQUITA. 2013;310(19): 5189-4397 (http://education.[employer] Beyond[employer]/faq/UDO985) CHOL/HDLC RATIO 5.3(H) <5.0 (calc) [facility] NON-HDL CHOLESTEROL 160(H) <130 mg/dL (calc) [facility] Comment: For patients with diabetes plus 1 major ASCVD risk factor, treating to a non-HDL-C goal of <100 mg/dL (LDL-C of <70 mg/dL) is considered a therapeutic option. Blood Blood / Unknown 07/28/2024 1 1:33 AM EST 07/28/2024 11:39 AM EST Narrative [facility] - 07/29/2024 8:39 AM EST FASTING:YES Dawit Camejo PharmD LAB - BLOOD D RAW Final Result [facility] [address] [address], [facility] [address] [place] [address] * (ABNORMAL) COMPREHENSIVE METABOLIC PANEL (07/28/2024 11:33 AM EST) GLUCOSE 104(H) 65 - 99 mg/dL [facility] Comment: ?Fasting reference interval For someone without known diabetes, a glucose value between 100 and 125 mg/dL is consistent with prediabetes and should be confirmed with a follow-up test. UREA NITROGEN (BUN) 13 7 - 25 mg/dL [facility] CREATININE (blood) 0.71 0.50 - 1.05 mg/dL [facility] EGFR 95 > OR = 60 mL/min/1. 73m2 [facility] BUN/CREATININE RATIO SEE NOTE: [facility] Comment: ?? Not Reported: BUN and Creatinine are within ?? reference range. ? SODIUM 141 135 - 146 mmol/L [facility] POTASSIUM 4.0 3.5 - 5.3 mmol/L [facility] CHLORIDE 106 98 - 110 mmol/L [facility] CARBON DIOXIDE 29 20 - 32 mmol/L [facility] CALCIUM 9.5 8.6 - 10.4 mg/dL [facility] PROTEIN, TOTAL 7.0 6.1 - 8.1 g/dL [facility] ALBUMIN 4.2 3.6 - 5.1 g/dL [facility] GLOBULIN 2.8 1.9 - 3.7 g/dL (calc) [facility] ALBUMIN/GLOBULI N RATIO 1.5 1.0 - 2.5 (calc) [facility] BILIRUBIN, TOTAL 0.5 0.2 - 1.2 mg/dL [facility] ALKALINE PHOSPHATASE 72 37 - 153 U/L [facility] AST 17 10 - 35 U/L [facility] ALT 24 6 - 29 U/L [facility] Blood Blood / Unknown 07/28/2024 1 1:33 AM EST 07/28/2024 11:39 AM EST Narrative [facility] - 07/29/2024 8:39 AM EST FASTING:YES Dawit Camejo PharmD LAB - BLOOD D RAW Edited Result - Final Performing Organization Address City/[facility]/ZIP Co de Phone Number [facility] [address] [address], [facility] [address] [phone] * (ABNORMAL) GLUCOSE, BLOOD BY GLUCOSE MONITORING DEVICE (CLIA WAIVED)POCT (07/19/2024 2:37 PM EST) GLUCOSE 119(A) 70 - 100 mg/dL [facility] POCT Capillary Blood Blood / Unknown 2:37 PM EST Dawit Camejo PharmD LAB - BLOOD D RAW Final Result [facility] OFFICE POCT * EYE EXAM (07/14/2024 3:00 AM EST) 07/14/2024 3:00 AM EST us Rj Martinez PA-C OTHER Edited Resul t - Final * HISTORIC MAMMOGRAM (02/24/2024 3:00 AM EDT) 02/24/2024 3:00 AM EDT us Rj Martinez PA-C IMG MAMMO Edited Resul t - Final * MICROALBUMIN/CREATININE RATIO, URINE, RANDOM (01/28/2024 1:36 PM EDT) CREATININE, RANDOM URINE 193 20 - 275 mg/dL [facility] [place] [facility] [facility] MICROALBUMIN 1.7 mg/dL [facility] Comment: Reference Range Not established MICROALBUMIN/CREA TININE RATIO, RANDOM URINE 9 <30 mg/g creat [facility] Comment: The ADA defines abnormalities in albumin [...] PM EDT 01/28/2024 1:39 PM EDT Narrative [facility] - 01/30/2024 8:08 PM EDT FASTING:NO Dawit Camejo PharmD LAB - NO BLOO D DRAW Final Result [facility] [address] [address], [facility] [address] [address] * REFERRAL TO PODIATRY (10/09/2022 3:00 AM EDT) 10/09/2022 3:00 AM EDT Sil Posey PharmD REFERRAL Edited Resu lt - Final * OCCULT BLOOD, STOOL (X1) (05/24/2020 10:58 AM EST) STOOL OCCULT, SCREENING (ICT) RESULT SPEC 1 NEGATIVE CARD ELA DATE: 05/29/2020 RESULT SPEC 2 NEGATIVE CARD ELA DATE: 05/31/20 RESULT SPEC 3 NEGATIVE CARD ELA DATE: 06/06/2020 [facility] Stool specimen / Unknown 05/24/2020 10:58 AM EST 06/07/2020 6:43 PM EST [facility]ative [facility] 06/11/2020 12:08 PM EST Carlos Manuel [employer], [place] [address] Sonar Subsystem Equipment Operator - Josie Wise MD PT ID [id number] ORD# [id number] SOURCE: STOOL; [facility] - NO BLOOD DRAW Final Result Performing Organization Address City/[facility]/[place] [address], [place] [phone] * (ABNORMAL) HEPATITIS A,B,C PANEL (03/08/2019 9:13 AM EDT) HEPATITIS B SURFACE ANTIBODY NEGATIVE NEGATIVE [facility] HEPATITIS B SURFACE ANTIGEN NEGATIVE NEGATIVE [facility] Comment: Over the counter supplements containing high doses of biotin may interfere with this assay. ??If interference is suspected, patients shoud be retested after refraining from biotin supplements for 72 hours. HEPATITIS C VIRUS DIAGNOSTIC NEGATIVE NEGATIVE [facility] HEPATITIS A ANTIBODY TOTAL POSITIVE(A) NEGATIVE [facility] Comment: Over the counter supplements containing high doses of biotin may interfere with this assay. ??If interference is suspected, patients shoud be retested after refraining from biotin supplements for 72 hours. HEPATITIS B CORE ANTIBODY NEGATIVE NEGATIVE [facility] Blood specimen (specimen) Blood / Unknown 03/08/2019 9:13 AM EDT 03/08/2019 9:20 AM EDT Narrative [facility] - 03/08/2019 12:20 PM EDT Carlos Manuel [employer] [address] Sonar Subsystem Equipment Operator - Josie Wise MD PT ID [id number] ORD# [id number] us [facility] - BLOOD DRAW Edited Result - Final [facility] [place] [address], [place] [phone] * HIV-1 & HIV-2 ANTIBODIES (03/08/2019 9:13 AM EDT) HIV 1 AND 2 ANTIBODY SCREEN NEGATIVE NEGATIVE [facility] Comment: This assay is a 4th generation [...] AM EDT 03/08/2019 9:20 AM EDT Narrative [facility] - 03/08/2019 12:49 PM EDT [employer], a member of [address] [address] Sonar Subsystem Equipment Operator - Josie Wise MD PT ID [id number] ORD# [id number] Yessenia Chaidez CELL ATTENDANT LAB - BLOOD DRAW Final Result [facility] [address] [place] [address], * PAP, LIQUID BASED (10/03/2015 10:20 AM EDT) Protected specimen brush (physical object) Cervix uteri structure / Unknown 10/03/2015 10:20 AM EDT Imp[facility] - 10/03/2015 10:20 AM EDT ThinPrep Pap, Imaged: Negative for Squamous Intraepithelial Lesion and Malignancy HPV Negative Susi Alex CELL ATTENDANT LAB - NO BLOOD DRAW Final Re sult [facility] [address] [place] [phone], from Last 3 Months or Most Recently Relevant to Health Maintenance Insurance [facility] ([facility]) Member Subscriber Plan / Payer ( fective 2022-Present) Name:Cheryl Way Relation to Subscriber:Self Name:Cheryl Way Payer ID:[id number] Type:Auramist Address: [address] [place] [id number] [facility] ([facility]) Member Subscriber Plan / Payer ( fective 2022-Present) Name:Cheryl Way Relation to Subscriber:Self Name:Cheryl Way Payer ID:[id number] Type:Auramist Address: [address] [place] [id number] Care Teams Cake Batter Mixer Relationship Specialty Start Date End Date Rj Martinez PA-C [address] [place] [address] PCP - General 09/16/21
--- OUTSIDE RECORDS SUMMARY | 2024-08-30 12:51 | XMS_ITS | Encounter Summary ---
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 HPI: Cheryl Way is a 64 year old female with a history of the following medical problems: who presents today for follow up of hypertension. Patient Active Problem List Diagnosis Essential hypertension Type 2 diabetes mellitus without complication ([facility]) Hyperlipidemia Routine gynecological examination Uterine prolapse Positive QuantiFERON-TB Gold test Vitamin D deficiency Lilly's neuroma of both feet Class 1 obesity due to excess calories without serious comorbidity with body mass index (BMI) of 30.0 to 30.9 in adult Primary osteoarthritis of left knee Acute meniscal tear of left knee Her hypertension is currently elevated. BP in the office today is BP Readings from Last 1 Encounters: 08/25/24 (!) 146/72 The patient does not check her blood pressure at home. Diet: low salt Tobacco Use: reports that she has never smoked. She has never used smokeless tobacco. Marijuana Use: No Alcohol Use: No Exercise: No Cheryl Way is experiencing the following: taking medications as instructed, no medication side effects noted, no TIAs, no chest pain on exertion, no dyspnea on exertion, no swelling of ankles. HTN is managed with Lisinopril 20 mg daily and she c/o the following side effects of medications: none. Last 3 BP Readings: Date: BP: 07/19/2024 150/90 04/26/2024 150/84 04/12/2024 142/80 REVIEW OF SYSTEMS: Remainder ROS: See HPI, systems reviewed and are otherwise negative or noncontributory. Objective: Vitals: Blood pressure (!) 146/72, pulse 93, temperature 98.9 ??F (37.2 ??C), temperature source Oral, resp. rate 16, height 5' 4 (1.626 m), weight 175 lb (79.4 kg), SpO2 98%. Body mass index is 30.04 kg/m??. Physical Exam: General: NAD HEENT: PERRL, EOMI CV: RRR, S1S2+ Lungs: CTA bilaterally Abd: soft, NT, ND, BS+ Ext: No edema, pulses++ Assessment/Plan: I10 Essential hypertension (primary encounter diagnosis) Plan : LISINOPRIL 10 MG TABLET - Take 1 Tablet by mouth once daily - Patient was advised to Change antihypertensive regimen to include increase dose from 5 mg to 10 mg daily. L65.9 Hair loss Plan : BLOOD COUNT COMPLETE AUTO&AUTO DIFRNTL WBC IRON, TIBC, FERRITIN PANEL Return in about 3 months (around 11/25/2024) for HTN f/u. documented in this encounter Miscellaneous Notes * Patient Instructions - Rj Martinez PA-C - 08/25/2024 2:18 PM EDT If you are not able to keep your appointment please call 24-48 hours before your appointment to cancel or reschedule. documented in this encounter Plan of Treatment Upcoming Encounters Date Type Department Care Team (Late st Contact Info) Description 09/08/2024 1:00 PM EDT Office Visit [facility] [place] [address] Roxane Hawk [address] [place], [place] [phone] 09/22/2024 2:20 PM EDT Office Visit [facility] [address] [place] [address] Dawit Morrow, PharmD [address] [place] [address] documented as of this encounter Procedures Procedure Name Priority Date/Time Associated Diagnosis Comments IRON, TIBC, FERRITIN PANEL Routine 08/25/2024 2:19 PM EDT Hair loss BLOOD COUNT COMPLETE AUTO&AUTO DIFRNTL WBC Routine 08/25/2024 2:19 PM EDT Hair loss documented in this encounter Results * IRON, TIBC, FERRITIN PANEL (08/25/2024 2:19 PM EDT) Pathologist [facility] FERRITIN 140 16 - 288 ng/mL [facility] IRON, TOTAL 59 45 - 160 mcg/dL [facility] IRON BINDING CAPACITY 344 250 - 450 mcg/dL (calc) [employer] [employer] % SATURATION 17 16 - 45 % (calc) [employer] Blood Blood / Unknown 08/25/2024 2 :19 PM EDT 08/25/2024 2:21 PM EDT Rj Martinez PA-C LAB - BLOOD DRAW Final Resul t [facility] [address] [address], [email or web address] [address] [address] * (ABNORMAL) BLOOD COUNT COMPLETE AUTO&AUTO DIFRNTL WBC (08/25/2024 2:19 PM EDT) WHITE BLOOD CELL COUNT 11.0(H) 3.8 - 10.8 Thousand/ uL [employer] [employer] RED BLOOD CELL COUNT 4.07 3.80 - 5.10 Million/u L [facility] HEMOGLOBIN 12.0 11.7 - 15.5 g/dL [facility] HEMATOCRIT 36.3 35.0 - 45.0 % [employer] MCV 89.2 80.0 - 100.0 fL [employer] MCH 29.5 27.0 - 33.0 pg [facility] MCHC 33.1 32.0 - 36.0 g/dL [facility] Comment: For adults, a slight decrease in the calculated MCHC value (in the range of 30 to 32 g/dL) is most likely not clinically significant; however, it should be interpreted with caution in correlation with other red cell parameters and the patient's clinical condition. RDW 12.9 11.0 - 15.0 % [employer] PLATELET COUNT 305 140 - 400 Thousand/ uL [employer] [employer] MPV 10.0 7.5 - 12.5 fL [facility] ABSOLUTE NEUTROPHILS 5,533 1,500 - 7,800 cells/uL [employer] ABSOLUTE LYMPHOCYTES 4,543(H) 850 - 3,900 cells/uL [employer] ABSOLUTE MONOCYTES 649 200 - 950 cells/uL [facility] ABSOLUTE EOSINOPHILS 242 15 - 500 cells/uL [employer] ABSOLUTE BASOPHILS 33 0 - 200 cells/uL [facility] NEUTROPHILS PCT 50.3 % [employer] LYMPHOCYTES 41.3 % [facility] MONOCYTES 5.9 % [employer] [employer] EOSINOPHILS 2.2 % [employer] BASOPHILS 0.3 % [employer] Blood Blood / Unknown 08/25/2024 2 :19 PM EDT 08/25/2024 2:21 PM EDT us Rj Martinez PA-C LAB - BLOOD DRAW Edited Resu lt - Final M[facility] [address] [address], [facility] [address] [place] [address] documented in this encounter Visit Diagnoses Diagnosis Essential hypertension- Primary Hair loss Alopecia, unspecified documented in this encounter Additional Health Concerns Assessment Noted Time PHQ-9 Depression Total Score: 0 04/12/20 24 11:01 AM PST documented as of this encounter Care Teams Medical Safety Director Relationship Specialty Start Date End Date Rj Martinez PA-C [address] [place] [address] PCP - General 09/16/21 documented as of this encounter
== END 2024-08-30 10:44 | disposition home or self-care (01) ==
LOC: HO.MRI 10:43
PROVIDERS: Visit Provider Orthopaedic Surgery
DX: S83.242A Other tear of medial meniscus, current injury, left knee, initial encounter (principal)
CPT/HCPCS: 73721

== ENCOUNTER 2024-10-25 13:01 | Outpatient (AMB) | payer OTHER, SELFPAY ==
--- OUTSIDE RECORDS SUMMARY | 2024-10-25 13:05 | XMS_ITS | Clinical Summary ---
Author Organization [facility] Address [address] [place] [address] Phone Care Team Providers Care Roller Varnisher Name Role Phone Rj Summers Primary Care Provider [phone] Allergies No known active allergies Medications ammonium [...] Care Team (Late st Contact Info) Description 11/03/2024 1:00 PM EDT Office Visit Orthopedic Surgery [facility] [address] [phone] Anthony Pierson, DPM [address] [address] Health Maintenance Due Date Last Done Comments [...] of Health Screening 05/04/2022 COVID-19 Vaccine ( season) 2024 Influenza Vaccine (Season Ended) 2025 Breast Cancer Screening 02/23/2026 02/24/20 24, 01/02/2022, 11/04/2020, Additional history exists Cholesterol Screening (Lipid Panel) 05/21/2028 05/21/2023 RSV Immunization Adult Patients (1 - 1-dose 75+ series) 2035 HIB [...] age to complete this topic Meningococcal B Vaccine Aged Out No l onger eligible based on patient's age to complete [...] PM EDT Narrative 02/24/2024 8:03 AM EDT [facility] Diagnostic Imaging Department [address] [place], [place] [phone] Patient: ??CHERYL WAY ?/Age/Sex: 1960 - 63 - F Unit#: ??[id number] ? Location/Status: ??SPDIMAM/REG CLI ? Mnemonic/Ordering Site: ??DIGSC/SPMAM Ordering Physician: ??RJ SUMMERS [facility] Screening Digital - 02/23/24 - 1304 Report Status:Signed EXAM: [facility] Screening Digital EXAM DATE AND TIME: 02/23/2024 1:05 PM HISTORY: ??Screening. COMPARISON: ??02/13/22, 01/02/22, 11/03/20, 01/13/19 TECHNIQUE: Bilateral digital breast tomosynthesis was performed in the CC and MLO projections. Computer aided detection with [employer] 3D 3.1 was employed. TISSUE DENSITY: b. [...] Mamm[facility] performed at [facility] [address] [place] [address] Dictating Physician: ??CLAIR MORGAN MD Electronically Signed by: ??CLAIR MORGAN MD Dic Date/Time: ??02/24/24 0802 Sign date/Time: ??02/24/24 0803 Procedure Note Clair Morgan MD - 03/16/2024 [facility] Diagnostic Imaging Department [address] [place] [address] Patient: CHERYL WAY /Age/Sex: 1960 - 63 - F Unit#: [id number] Location/Status: [facility] CLI Mnemonic/Ordering Site: [facility] Ordering Physician: RJ SUMMERS [facility] Screening Digital - 02/23/24 - 1304 Report Status:Signed EXAM: [facility] Screening Digital EXAM DATE AND TIME: 02/23/2024 1:05 PM HISTORY: Screening. COMPARISON: 02/13/22, 01/02/22, 11/03/20, 01/13/19 TECHNIQUE: Bilateral digital breast tomosynthesis was performed in the CCand MLO projections. Computer aided detection with [employer] 3D 3.1was employed. TISSUE DENSITY: b. There [...] Mammogram performed at [facility] [place] [address] Dictating Physician: CALIR MORGAN MD Electronically Signed by: CLAIR MORGAN MD Dic Date/Time: 02/24/24 08 Sign date/Time: 02/24/24 0803 Rj MILLAN IMG BI PROCEDURES Final Result * Lipid panel (05/21/2023) LDL/HDL Ratio 0 Comment:No interpretation Triglycerides 0 mg/dL Comment:No interpretation Cholesterol 0 mg/dL Comment:No interpretation HDL 0 mg/dL Comment:No interpretation LDL Cholesterol 0 mg/dL Comment:No interpretation Blood Venous blood specimen / Unknown Historical Provider LAB BLOOD ORDERABLES Corrine l Result from Last 3 Months or Most Recently Relevant to Health Maintenance Insurance [facility] [address] [id number] Care Teams Roller Varnisher Relationship Specialty Start Date End Date Rj Summers PA [address] [place] [address] PCP - General 07/08/22
--- NOTE | 2024-10-25 13:08 | A.OFFVIS_ITS ---
Vital Signs 10/25/24 13:09 Height 5 ft 3 in Weight 176 lb BMI 31.2 Intake Visit Reasons: MRI Left Knee Intake Note: Cheryl is a 64 year old female who presents today for a MRI review of the left knee. The patient describes her pain as sharp in nature. Most of the pain is along the medial aspect of her knee. She has been using topical Voltaren gel which gives her mild relief. She states that her left knee will give out several times per day. Allergies No Known Allergies Allergy (Verified 10/25/24 13:09) Medication List - Last Reconciled 10/25/24 by Kaleb Eastman MD diclofenac sodium 1% 2 grams topical QID glipizide 5 mg PO DAILY PFSH Social History (Updated 03/10/24 @ 10:43 by Iliana Torres) Alcohol intake: never Patient Tobacco Use Status: Never used Tobacco Current occupational status: employed Current occupation: House Keeping Physical Exam Vital Signs: BMI result Body Mass Index 31.2 Const Other: Well-nourished well-developed very friendly female awake alert and oriented x3 in no acute distress Extrem Other: Left knee examination shows a minimal effusion, minimal crepitus with range of motion, tenderness along her medial joint line, positive Thomas's test, no instability Results Reviewed Results Reviewed: Standing full weight-bearing x-rays of the patient's left knee taken previously show mild diffuse joint space narrowing, no acute bony abnormalities MRI of the patient's left knee shows mild diffuse degenerative changes as well as a tear of the medial meniscus Assessment & Plan Assessment & Plan (1) Tear of medial meniscus of left knee: Code(s): S83.242A - Other tear of medial meniscus, current injury, left knee, initial encounter Category: Medical Plan Ms. Way presents with left knee pain and mechanical symptoms due to a medial meniscus tear. I had a lengthy discussion with the patient regarding the treatment options. At this point she appears to be failing continued non operative treatments. The risks and benefits of left knee arthroscopic surgery were discussed at length with the patient. The patient is considering undergoing surgery later this year. She will contact my office to pick a surgery date if she chooses to do so. Otherwise she will follow up on an as- needed basis. Surgery was most likely involve left knee arthroscopic partial medial meniscectomy. She will follow-up as instructed. I spent 21 minutes in reviewing the patient's records and imaging studies, seeing the patient and documenting in the medical record. Coding Level of Care Code Est Pt Level 3 (83998) Complex EM visit Add On G2211 Diagnoses Tear of medial meniscus of left knee S83.242A
[2024-10-25 13:09] VITALS: BMI 31.2
== END 2024-10-25 13:26 | disposition home or self-care (01) ==
LOC: HO.HOS 13:02
PROVIDERS: Visit Provider Orthopaedic Surgery
DX: S83.242A Other tear of medial meniscus, current injury, left knee, initial encounter (principal)
CPT/HCPCS: 99213